=== PATIENT | female | born 1985 | race Caucasian/White ===

== ENCOUNTER 2022-05-20 09:13 | Inpatient (IN) | payer OTHER ==
[2022-05-20] MEDS ORDERED: Fentanyl 100 MCG/2 ML VIAL ONE (09:25)
[2022-05-20] MEDS ORDERED: Midazolam HCl 2 mg/2 ml Vial ONE (09:25)
[2022-05-20] MEDS ORDERED: Lidocaine 1% (PF) 30 ML VIAL ONE (09:55)
[2022-05-20] MEDS ORDERED: Sodium Chloride 0.9% 200 ML IV PRN (09:55)
[2022-05-20] MEDS ORDERED: Heparin 10,000 UNITS/ 10 ML VIAL ONE (09:55)
[2022-05-20] MEDS ORDERED: Nitroglycerin 0.4 MG TAB (25 Tab Bottle) SL PRN (09:55)
[2022-05-20] MEDS ORDERED: Acetaminophen/Codeine 30-300mg Tablet PO PRN (09:55)
[2022-05-20] MEDS ORDERED: Iopamidol 370 76% 100 ML VIAL ONE (10:35)
[2022-05-20 12:00] LABS: Pregnancy Test - Urine (BHCG) Negative (Negative); Pregu Control Background? CLEAR/WHITE (CLR/WHITE); Pregu Control Bar Appear? YES (CONTROL BAR); Specific Gravity 1.023 (1.002-1.036)
[2022-05-20 12:02] VITALS: BMI 40.0
[2022-05-20] MEDS ORDERED: Potassium Chloride 20 MEQ TAB PO SCH (14:30)
[2022-05-20] MEDS: Sodium Chloride 0.9% 1,000 ML IV SCH ×2 (16:07→19:20)
[2022-05-21] MEDS: Sodium Chloride 0.9% 1,000 ML IV SCH ×2 (04:00→08:56)
[2022-05-21 05:33] LABS: #Eosinphils 0.1 thou/uL (0.0-0.7); #Lymphocytes 1.8 thou/uL (1.20-3.40); #Monocytes 0.5 thou/uL (0.11-0.59); #Neutrophils 4.8 thou/uL (1.40-6.50); %Basophils 0.4 % (0.0-1.0); %Eosinophils 1.7 % (0.0-10.0); %Lymphocytes 24.9 % (21.0-51.0); %Monocytes 7.1 % (0.0-10.0); %Neutrophils 65.8 % (42.0-75.0); Hemoglobin 12.2 g/dL (12.0-16.0); Mean Corpuscular HGB CONC 32.8 g/dL (32.0-36.0); Mean Corpuscular Hemoglobin 30.8 pg (27.0-31.0); Mean Platelet Volume 6.9 fL (7.4-10.4); Platelet Count 206 thou/uL (130-400); RBC Distribution Width 12.1 % (11.5-14.5); Red Blood Cell (RBC) Count 3.97 mill/uL (4.20-5.40); White Blood Cell (WBC) Count 7.3 thou/uL (4.8-10.8)
[2022-05-21 05:59] LABS: ALT (SGPT) 26 U/L (8-55); AST (SGOT) 27 U/L (5-34); Albumin 3.3 g/dL (3.5-5.0); Alkaline Phosphatase 61 U/L (40-110); Anion Gap 11 mmol/L (10-20); BUN (Urea Nitrogen) 8 mg/dL (7.0-18.7); Bilirubin, Total 0.5 mg/dL (0.2-1.2); Calc. Creatinine Clearance 234 mL/min (70-130); Calcium 8.2 mg/dL (7.8-10.44); Carbon Dioxide 22 mmol/L (22-29); Cardiac Risk 3.3 (Less than 4.5); Chloride 110 mmol/L (98-107); Cholesterol 183 mg/dl (< 200 Desired); Estimated GFR 118; Globulin 2.6 g/dL (2.4-3.5); Glucose 100 mg/dL (70-105); HDL Cholesterol 55 mg/dL (>60 Neg Risk); LDL Cholesterol, Calculated 115 mg/dL; Protein, Total 5.9 g/dL (6.0-8.3); Sodium 139 mmol/L (136-145); Triglycerides 67 mg/dL (Less than 150)
[2022-05-21 06:16] LABS: Free T4 (Free Thyroxine) 0.82 ng/dL (0.70-1.48)
[2022-05-21] MEDS ORDERED: FLUoxetine HCl 20 MG CAP PO SCH (09:00)
[2022-05-21 11:58] VITALS: BP 129/66; TEMP 97.9
== END 2022-05-21 15:30 | disposition home or self-care (01) | DRG 287 ==
LOC: CCL 09:13 → NEURO 09:35
PROVIDERS: ADMIT Internal Medicine Cardiovascular Disease; ATTEND Internal Medicine Cardiovascular Disease
PROC: 4A023N7 Measurement of Cardiac Sampling and Pressure, Left Heart, Percutaneous Approach (ICD-10-PCS; principal; 2022-05-20)
PROC: B2111ZZ Fluoroscopy of Multiple Coronary Arteries using Low Osmolar Contrast (ICD-10-PCS; 2022-05-20)
PROC: B2151ZZ Fluoroscopy of Left Heart using Low Osmolar Contrast (ICD-10-PCS; 2022-05-20)
DX: I20.1 Angina pectoris with documented spasm (principal); F41.9 Anxiety disorder, unspecified; F32.A Depression, unspecified; K21.9 Gastro-esophageal reflux disease without esophagitis; Z20.822 Contact with and (suspected) exposure to COVID-19; Z90.49 Acquired absence of other specified parts of digestive tract; Z98.890 Other specified postprocedural states
CPT/HCPCS: 36415; 80053; 80061; 81025; 84439; 84443; 84481; 85025; 93306; 93458; 99152; C1769; J1644; J2001; J2250; J3010; J7050; Q9967; U0003; U0005